=== PATIENT | male | born 1965 | race Caucasian/White ===

== ENCOUNTER → 2021-10-26 | Outpatient (CLI) | payer OTHER ==
--- NOTE | 2021-10-26 10:19 | RAD ---
EXAM: Lumbar spine, 2 views. HISTORY: Pain. COMPARISON: 12/22/2020. FINDINGS: 2 views of the lumbar spine are obtained. There are laminectomy changes at L1-L4. There is minimal grade 1 anterolisthesis of L3 on L4. There is multilevel endplate remodeling and osteophytosi s. There is multilevel facet arthropathy. There is multilevel disc space narrowing. IMPRESSION: 1. Multilevel degenerative change throughout the lumbar spine, described above. 2. Lumbar laminectomy changes. Electronically signed by: Jennyfer Haddad MD (10/26/2021 10:17 AM) [id number]
== END ==
LOC: RAD 09:36
PROVIDERS: ATTEND Anesthesiology Pain Medicine
DX: Z02.71 Encounter for disability determination (principal); M47.816 Spondylosis without myelopathy or radiculopathy, lumbar region; M48.061 Spinal stenosis, lumbar region without neurogenic claudication; M48.8X6 Other specified spondylopathies, lumbar region; Z98.890 Other specified postprocedural states
CPT/HCPCS: 72100